=== PATIENT | male | born 1990 | race Caucasian/White ===

== ENCOUNTER 2020-11-01 04:19 | Emergency (ER) | payer OTHER ==
[~2020-11-01] VITALS: Ht 175.3 cm; Wt 81.6 kg
--- NOTE | 2020-11-01 04:29 | NUR ---
ALMAZ FROM FOR [facility] HI, PT AGITATED AND PSYCHOTIC, UNPREDICTABLE AND UNABLE TO PROVIDE MORE INFO. PT WAS ASSISTED TO BED 12 ER AND WAS PLACED ON A MONITOR. ON CLOSE SUPERVISION OF A SITTER , ON SI/ HI PRECAUTION. WILL CONT TO MONITOR
[2020-11-01] MEDS ORDERED: diphenhydrAMINE HCL 50 MG CAPSULE ONE (04:39)
[2020-11-01] MEDS ORDERED: OLANZAPINE 5 MG TABLET ONE (04:39)
[2020-11-01] MEDS ORDERED: OLANZAPINE ZYDIS 5 MG TAB.RAPDIS ONE (04:40)
--- NOTE | 2020-11-01 04:45 | NUR ---
[employer] AT BED SIDE
[2020-11-01] MEDS ORDERED: OLANZAPINE 10 MG VIAL IM ONE ×3 (04:46→23:34)
[2020-11-01 04:58] LABS: BASOPHILS # (AUTO) 0.1 K/uL (0.0-0.2); BASOPHILS % (AUTO) 0.7 % (0.0-2.0); EOSINOPHILS % (AUTO) 4.9 % (0.0-6.0); HEMATOCRIT 46 % (39-51); HEMOGLOBIN 15.6 g/dL (13.5-17.5); LYMPHOCYTES # (AUTO) 1.8 K/uL (0.8-4.8); LYMPHOCYTES % (AUTO) 16.6 % (20.0-44.0); MEAN CORPUSCULAR HGB CONC 34 g/dl (31.0-36.0); MEAN CORPUSCULAR VOLUME 93 fL (80-96); MONOCYTES # (AUTO) 0.6 K/uL (0.1-1.30); MONOCYTES % (AUTO) 5.7 % (2.0-12.0); NEUTROPHILS # (AUTO) 7.7 K/uL (1.8-8.9); NEUTROPHILS % (AUTO) 72.1 % (43.0-81.0); PLATELET COUNT (AUTO) 293 K/uL (150-450); RED BLOOD CELL COUNT(AUTO) 4.91 MIL/uL (4.5-6.0); WHITE BLOOD COUNT (AUTO) 10.6 K/uL (4.3-11.0)
[2020-11-01] MEDS ORDERED: OLANZAPINE ZYDIS 5 MG TAB.RAPDIS PO ONE (05:00)
[2020-11-01] MEDS ORDERED: diphenhydrAMINE HCL 25 MG CAPSULE PO ONE (05:00)
[2020-11-01 05:05] LABS: CALCIUM, SERUM 9.1 mg/dL (8.5-10.1); CARBON DIOXIDE 27 mmol/L (21-32); CHLORIDE 98 mmol/L (98-107); CREATININE 1.2 mg/dL (0.6-1.3); GLUCOSE 128 mg/dL (74-106); POTASSIUM 3.7 mmol/L (3.5-5.1); SODIUM SERUM 137 mmol/L (136-145); UREA NITROGEN, BLOOD 14 mg/dL (7-18)
[2020-11-01 05:10] LABS: ALANINE AMINOTRANSFERASE 26 U/L (12-78); ALBUMIN 4.1 g/dL (3.4-5.0); ALKALINE PHOSPHATASE 84 U/L (46-116); ASPARTATE AMINOTRANSFERASE 15 U/L (15-37); BILIRUBIN,DIRECT 0.1 mg/dL (0.0-0.2); BILIRUBIN,TOTAL 0.7 mg/dL (0.2-1.0); TOTAL PROTEIN, SERUM 7.8 g/dL (6.4-8.2)
[2020-11-01 05:30] LABS: ACETAMINOPHEN 0 ug/ml (10-30); ALCOHOL, BLOOD < 3 mg/dL (0-0)
--- NOTE | 2020-11-01 05:48 | NUR ---
REFUSING TO PROVIDE URINE SAMPLE.
--- NOTE | 2020-11-01 06:27 | NUR ---
BROUGHT TO CT
--- NOTE | 2020-11-01 13:05 | NUR ---
Pathology Supervisor note: Social service consult requested for homicidal ideation. Patient is a 30-year-old, male. SW attempted to interview patient at his bedside in the emergency department. Patient presented paranoid and agitated. SW assessed for current SI/HI. Patient was unable to answer SW's question and presented psychotic. Patient was unable to be redirected and repeatedly spoke about Diabetes. SW was unable to interview patient or assess the patient's needs for community resources. JONO notified Dr. Martin who requested crisis evaluation. Pending toxicology report. JONO notified Makayla Olivares RN, , who stated she would evaluate the patient later today. Pending crisis evaluation. PLAN: Pending toxicology report. Pending crisis evaluation by Makayla Olivares RN. SS will remain available as needed.
[2020-11-01] MEDS ORDERED: LORAZEPAM INJ 2 MG/ML VIAL IM ONE (13:30)
[2020-11-01 13:34] LABS: BILIRUBIN,URINE Negative (NEGATIVE); COLOR,URINE YELLOW (YELLOW); LEUKOCYTE ESTERASE ,URINE Negative (NEGATIVE); NITRITE, URINE Negative (NEGATIVE); PROTEIN,URINE Negative (NEGATIVE); UGLUCOSE Negative (NEGATIVE); UROBILINOGEN,URINE 0.2 EU/dL (0.2)
[2020-11-01] MEDS ORDERED: LORAZEPAM INJ 2 MG/ML VIAL ONE ×2 (14:52→23:34)
[2020-11-02] MEDS ORDERED: OLANZAPINE 10 MG VIAL IM ONE
[2020-11-02] MEDS ORDERED: LORAZEPAM INJ 2 MG/ML VIAL IM ONE
--- NOTE | 2020-11-02 00:14 | NUR ---
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
--- NOTE | 2020-11-02 01:43 | NUR ---
PT ACCEPTED TO [facility] BY DR PETER. BED 122-B. REPORT GIVEN TO RAFA FELIPE FOR CONTINUATION OF CARE. PLS NOTIFY RAFA FELIPE WITH ETA. [phone]
--- NOTE | 2020-11-02 01:49 | NUR ---
[facility] CALL THE CAR CALLED FOR TRANSPORT. TRIP# [id number]
--- NOTE | 2020-11-02 01:58 | NUR ---
CALL FROM LOLA AT CALL THE CAR: [facility] ETA: [phone]
--- NOTE | 2020-11-02 08:04 | NUR ---
The patient is alert, denies pain. In room air and denies SOB. Respiration regular and unlabored. Will continue to monitor the patient.
--- NOTE | 2020-11-02 09:02 | NUR ---
NURSE FELIBERTO FROM [facility] AWARE OF PATIENT BEING TRANSFERED TO THEIR HOSPITAL AT THIS TIME.
--- NOTE | 2020-11-02 09:14 | NUR ---
PT TAKEN TO [facility]. ALERT ORIENTED X4 STABLE NON LABORED BREATHING.
[2020-11-02 09:16] VITALS: BP 126/88
== END 2020-11-02 09:17 ==
LOC: ER 04:25
DX: F29 Unspecified psychosis not due to a substance or known physiological condition (principal); R94.31 Abnormal electrocardiogram [ECG] [EKG]; Z20.822 Contact with and (suspected) exposure to COVID-19; Z91.14 Patient's other noncompliance with medication regimen; R45.850 Homicidal ideations; Z88.8 Allergy status to other drugs, medicaments and biological substances; Z79.01 Long term (current) use of anticoagulants
CPT/HCPCS: 36415; 70450; 71045; 80048; 80076; 80143; 80307; 80320; 81003; 83735; 84484; 85025; 85610; 85730; 87426; 93005; 96372 ×3; 99291; C9803; J2060; J3490 ×2; Q0163; G0480